=== PATIENT | female | born 1955 | race Caucasian/White ===

== ENCOUNTER 2023-11-16 16:56 | Emergency (ER) | payer MEDICARE ==
[~2023-11-16] VITALS: Ht 157.5 cm; Wt 68.0 kg
[2023-11-16 17:30] LABS: BASO% 0.6 % (0-3); EOS% 1.4 % (0-8); HEMATOCRIT 41.2 % (37.0-47.0); HEMOGLOBIN 13.2 g/dl (12.0-16.0); IMMATURE GRANULOCYTES 0.2 % (0.0-5.0); LYMPH% 32.8 % (15-41); MEAN CELL VOLUME 97.9 fL CALC (80.0-100.0); MEAN CORPUSCULAR HGB 31.4 pG CALC (26.0-32.0); MONO% 7.9 % (2-13); NEUT# 3.55 thou/uL (2.00-7.15); NEUT% 57.1 % (42-76); RED BLOOD COUNT 4.21 mill/uL (4.20-5.60); RED CELL DISTRI WIDTH 12.7 % (11.5-15.5)
[2023-11-16] MEDS ORDERED: LIVALO4 M1 PO (17:33)
[2023-11-16] MEDS ORDERED: ATENOLOL50 MG PO (17:34)
[2023-11-16] MEDS ORDERED: ASPIRINCHW 81MG PO (17:34)
[2023-11-16] MEDS ORDERED: VITAMIN D50000 UNI1 PO (17:36)
[2023-11-16] MEDS ORDERED: SYMBICORT1 AE1 IN (17:37)
[2023-11-16] MEDS ORDERED: MIRALAX17 GM (17:37)
[2023-11-16 17:47] LABS: ALBUMIN 4.4 g/dL (3.2-5.0); ALKALINE PHOSPHATASE 71 u/l (38-126); ANION GAP 12 (6-22 (CALC)); BILIRUBIN, TOTAL 0.5 mg/dL (0.02-1.3); BUN 16 mg/dL (8-23); BUN/CREATININE RATIO 19 (12-20 (CALC)); CARBON DIOXIDE 30 mmol/l (22-30); CHLORIDE 102 mmol/l (95-108); CREATININE 0.9 mg/dL (0.5-1.0); GFR FOR AFR.AMER. > 60 ML/MIN (>=60 (CALC)); GFR OTHER RACES > 60 ML/MIN (>=60 (CALC)); LIPASE 128 u/l (23-300); POTASSIUM 4.5 mmol/l (3.5-5.1); SGOT/AST 41 u/l (9-36); SODIUM 139 mmol/l (137-146); TOTAL PROTEIN 7.5 g/dL (6.3-8.2)
[2023-11-16 18:35] LABS: URINE BILIRUBIN - DIPSTICK Negative (NEGATIVE); URINE BLOOD DIPSTICK Negative (NEGATIVE); URINE GLUCOSE - DIPSTICK Negative (NEGATIVE); URINE KETONE Negative (NEGATIVE); URINE LEUK ESTERASE Negative (NEGATIVE); URINE NITRITE - DIPSTICK Negative (Negative); URINE PROTEIN - DIPSTICK Negative (NEG-TRACE); URINE UROBILINOGEN - DIPSTICK 0.2 E.U./dL (0.2)
[2023-11-16 18:37] LABS: URINE COLOR Yellow
[2023-11-16] MEDS ORDERED: ZOFRAN4 MG/TAB PO (19:00)
[2023-11-16] MEDS ORDERED: NAPROXEN500 MG PO (19:00)
[2023-11-16] MEDS ORDERED: AMOX/K CLAV875 M1 PO (19:00)
[2023-11-16 19:34] VITALS: BP 192/95
== END 2023-11-16 19:40 | disposition home or self-care (01) ==
LOC: ED 16:56
PROVIDERS: Family Medicine
DX: K29.80 Duodenitis without bleeding (principal); I10 Essential (primary) hypertension; J44.9 Chronic obstructive pulmonary disease, unspecified
CPT/HCPCS: Q9967

== ENCOUNTER 2024-04-29 04:28 | Inpatient (IN) | payer MEDICARE ==
[2024-04-29] VITALS (43 sets, daily range): BP systolic 94–169; BP diastolic 57–97
[~2024-04-29] VITALS: Ht 157.5 cm; Wt 87.2 kg
[~2024-04-29 04:28] MED LIST: AMOX/K CLAV875 M1 PO; ASPIRINCHW 81MG PO; ATENOLOL50 MG PO; EQ INFANTS20 MG/0.3 PO; ESCITALOPRAM OX10 MG PO; LIVALO4 M1 PO; LORTAB 5/3255 MG PO; MIRALAX17 GM; NAPROXEN500 MG PO; NORVASC PO; SYMBICORT1 AE1 IN; TORADOL PO; VITAMIN D50000 UNI1 PO; ZOFRAN4 MG/TAB PO
--- NOTE | 2024-04-29 04:40 | NUR ---
PT ARRIVES TO ROOM 6 VIA EMS.
[2024-04-29] MEDS ORDERED: HYDROmorphone HCL 2 MG/AMP IV STA (04:49)
[2024-04-29] MEDS ORDERED: Levofloxacin 750 mg Premix 150 ML IV STA (04:57)
[2024-04-29] MEDS ORDERED: DIATRIZOATE MEGLUMINE & SODIUM 30 ML/BTL BTL PO ONE (05:05)
[2024-04-29] MEDS ORDERED: PROMETHAZINE HCL 25 MG/ML AMP IV ONE (05:05)
[2024-04-29] MEDS ORDERED: SODIUM CHLORIDE 0.9% 1,000 ML BAG IV ONE ×2 (05:05→13:37)
--- NOTE | 2024-04-29 06:19 | NUR ---
PT VERY DROWSY, AWAKES TO PAINFUL STIMULI ONLY. UNABLE TO DRINK CONTRAST DUE TO INABILITY TO STAY AWAKE. DR NOTIFIED.
[2024-04-29] MEDS ORDERED: NALOXONE HCL 0.4 MG/ML 1ML AMP IV ONE (06:20)
--- NOTE | 2024-04-29 07:10 | NUR ---
Report recived from MACY MUNIZ. Blood cultures draw by lab. ABT's started.
[2024-04-29 07:18] LABS: BASO% 0.6 % (0-3); EOS% 0.3 % (0-8); LYMPH% 27.3 % (15-41); MEAN CORPUSCULAR HGB 32.1 pG CALC (26.0-32.0); MEAN CORPUSCULAR HGB CONC 30.5 g/dL CAL (32.0-36.0); MONO% 9.8 % (2-13); NEUT# 2.02 thou/uL (2.00-7.15); RED BLOOD COUNT 4.21 mill/uL (4.20-5.60); RED CELL DISTRI WIDTH 13.2 % (11.5-15.5)
[2024-04-29 07:29] LABS: HEMATOCRIT 44.2 % (37.0-47.0); HEMOGLOBIN 13.5 g/dl (12.0-16.0)
[2024-04-29 07:33] LABS: ALBUMIN 3.6 g/dL (3.2-5.0); CREATININE 1.3 mg/dL (0.5-1.0); MAGNESIUM 1.6 mg/dL (1.6-2.3); POTASSIUM 3.9 mmol/l (3.5-5.1); TOTAL PROTEIN 6.3 g/dL (6.3-8.2)
[2024-04-29] MEDS ORDERED: MORPHINE SULFATE 4 MG/ML VIAL IV ONE (07:50)
[2024-04-29] MEDS ORDERED: ONDANSETRON HCl 4 MG/2 ML SDV IV ONE ×3 (07:50→13:37)
[2024-04-29 08:04] LABS: TSH, 3RD GENERATION 1.18 uIU/mL (0.47 - 4.68)
--- NOTE | 2024-04-29 08:20 | NUR ---
Pt transported to CT via stretcher.
[2024-04-29] MEDS ORDERED: VANCOMYCIN HCL 1 GM in SODIUM CHLORIDE 0.9% 250 ML IV ONE (08:50)
[2024-04-29] MEDS ORDERED: PIPERACILLIN Sodium-Tazobactam 3.375 GM in SODIUM CHLORIDE 0.9% 100 ML IV ONE (09:35)
[2024-04-29 09:37] LABS: URINE BLOOD DIPSTICK Negative (NEGATIVE); URINE COLOR Dark yellow; URINE GLUCOSE - DIPSTICK Negative (NEGATIVE); URINE KETONE Negative (NEGATIVE); URINE LEUK ESTERASE Negative (NEGATIVE); URINE NITRITE - DIPSTICK Negative (Negative); URINE PROTEIN - DIPSTICK 100 mg/dL (NEG-TRACE); URINE UROBILINOGEN - DIPSTICK 0.2 E.U./dL (0.2)
[2024-04-29 09:38] LABS: INTERNATIONAL NORMALIZED RATIO 1.1 RATIO (0.7-1.3)
[2024-04-29 09:39] LABS: URINE MUCUS FEW hpf (NONE-FEW); URINE RBC 0-2 RBC/hpf (0-5); URINE SQUAMOUS EPITHELIAL CELL FEW EPI/hpf (0-FEW); URINE WBC 0-2 WBC/hpf (0-5)
[2024-04-29 09:39] LABS: PROTHROMBIN TIME 10.5 SECONDS (9.0-12.5)
[2024-04-29] MEDS ORDERED: Pantoprazole Sodium 40 MG VIAL (Protonix) IV ONE (09:45)
[2024-04-29 09:53] LABS: D-DIMER 0.6 mg/L (0.19-0.60)
[2024-04-29] MEDS ORDERED: SODIUM CHLORIDE 0.9% 1,000 ML IV PRN ×2 (10:20→15:10)
[2024-04-29] MEDS ORDERED: HYDROmorphone HCL 2 MG/AMP IV PRN (10:25)
[2024-04-29] MEDS ORDERED: SODIUM CHLORIDE 0.9% 500 ML IV ONE (10:25)
[2024-04-29] MEDS ORDERED: Pantoprazole Sodium 40 MG VIAL (Protonix) IV SCH (11:00)
[2024-04-29] MEDS ORDERED: NALOXONE HCL 1 MG/ML SYR ONE (11:47)
--- NOTE | 2024-04-29 12:15 | NUR ---
report received from ALEJANDRINA Palacios RN
--- NOTE | 2024-04-29 12:20 | NUR ---
Report called to ICU bed 2 RN.
--- NOTE | 2024-04-29 12:30 | NUR ---
Nurse to nurse with OR
--- NOTE | 2024-04-29 12:33 | NUR ---
Pt transported to OR via stretcher
[2024-04-29] MEDS ORDERED: LACTATED RINGER'S 1,000 ML IV ONE ×2 (12:35→15:20)
[2024-04-29] MEDS ORDERED: FAMOTIDINE 10MG/ML 2ML SDV IV ONE (12:58)
[2024-04-29] MEDS ORDERED: LIDOcaine HCl 1% (Local Anesth.) 20 ML VIAL ONE (13:00)
[2024-04-29] MEDS ORDERED: SODIUM CHLORIDE 0.9% 0 ML IV ONE (13:31)
[2024-04-29] MEDS ORDERED: KETOROLAC TROMETHAMINE 30 MG/ML SDV IV ONE (13:37)
[2024-04-29] MEDS ORDERED: PROPOFOL 200 MG/20 ML VIAL IV ONE (13:37)
[2024-04-29] MEDS ORDERED: ROCURONIUM BROMIDE 10 MG/ML 5ML VIAL IV ONE (13:37)
[2024-04-29] MEDS ORDERED: SUGAMMADEX SODIUM 200 MG/2 ML SDV IV ONE (13:37)
[2024-04-29] MEDS ORDERED: DEXAMETHASONE SODIUM PHOSPHATE PF 10 MG/ML SDV IV ONE (13:37)
[2024-04-29] MEDS ORDERED: LIDOCAINE HCL 2% 2ML SDV IV ONE (13:37)
[2024-04-29] MEDS ORDERED: PHENYLEPHRINE HCL 10 MG/ML VIAL IV ONE (13:37)
[2024-04-29] MEDS ORDERED: ONDANSETRON HCl 4 MG/2 ML SDV IV PRN (15:10)
[2024-04-29] MEDS ORDERED: HYDROmorphone HCL 2 MG/AMP ONE (15:14)
[2024-04-29] MEDS ORDERED: Fluconazole 200 mg Premix 100 ML IV SCH (15:15)
[2024-04-29] MEDS ORDERED: ALBUTEROL SULFATE 2.5 MG VIAL NEB PRN (15:15)
[2024-04-29] MEDS ORDERED: PIPERACILLIN Sodium-Tazobactam 4.5 GM in SODIUM CHLORIDE 0.9% 100 ML IV SCH (16:00)
--- NOTE | 2024-04-29 16:27 | NUR ---
female pt received from OR via stretcher accompanied by Bhargavi x2; no acute distress noted; pt transferred to bed x4 staff; admission assessment completed at this time; pt alert and oriented; drowsy; c/c of abd pain since lap yvonne; pt admits to pain 05/23; no n/v noted; resp even/shallow; lungs clear; skin color pale; o2 per nc at 3l; hr reg; strong pulses; no edema noted; sr on monitor; bilat scds placed; abd tender with absent bs; ng tube clamped to right nare; chacko too gravity with scant clear yellow urine; urometer placed at this time; TLC flushed and patent to RIJ; #20 to rac with ivf infusing without complication; #20 LH; no redness or edema noted at sites; dressing cdi to abd; johnny drain to right abd with bloody drainage; repositioned; call light within reach; will continue to monitor
[2024-04-29 17:02] LABS: BASO% 1.1 % (0-3); HEMATOCRIT 42.9 % (37.0-47.0); HEMOGLOBIN 13.4 g/dl (12.0-16.0); IMMATURE GRANULOCYTES 0.4 % (0.0-5.0); LYMPH% 20.9 % (15-41); MEAN CELL VOLUME 101.4 fL CALC (80.0-100.0); MEAN CORPUSCULAR HGB 31.7 pG CALC (26.0-32.0); MEAN CORPUSCULAR HGB CONC 31.2 g/dL CAL (32.0-36.0); MONO% 10.1 % (2-13); NEUT# 1.81 thou/uL (2.00-7.15); NEUT% 67.5 % (42-76); RED BLOOD COUNT 4.23 mill/uL (4.20-5.60); RED CELL DISTRI WIDTH 13.4 % (11.5-15.5)
[2024-04-29 17:12] LABS: BILIRUBIN, TOTAL 0.7 mg/dL (0.02-1.3); CREATININE 1.4 mg/dL (0.5-1.0)
[2024-04-29 17:19] LABS: ALBUMIN 2.5 g/dL (3.2-5.0); POTASSIUM 5.1 mmol/l (3.5-5.1)
[2024-04-29] MEDS ORDERED: BENZOCAINE-MENTHOL (MOUTH-THRO 1 LOZ LOZ MT PRN (17:20)
[2024-04-29] MEDS ORDERED: SODIUM CHLORIDE 0.9% 2,000 ML IV ONE (17:22)
[2024-04-29] MEDS ORDERED: STERILE WATER FOR IRRIGATION 1,000 ML BTL IR ONE (17:22)
--- NOTE | 2024-04-29 18:24 | NUR ---
pt resting comfortably in bed; no apparent distress noted; o2 per nc; iv intact and patent; no redness or edema noted at site; chacko to gravity; sr on monitor; call light within reach
--- NOTE | 2024-04-29 19:10 | NUR ---
eyes closed. o2 cont per nc. bowel sounds absent. abd dsg cdi. ngt cont to lis draining dark brown, draining minimally. monitoring manager shows sinus rhythm. ivf infusing well per rt tlc. chacko cath in place. urine clear yellow. urometer conts. bilat scds on. encouraged to tcbd but pt doesn't. fall precaution cont. bed alarm activated.
--- NOTE | 2024-04-29 22:00 | NUR ---
awakens easily. no c/o pain voiced. encouraged to tcdb but pt didn't.
--- NOTE | 2024-04-29 23:30 | NUR ---
awakens easily. no c/o pain voiced. phototypesetting equipment monitor shows sinus rhythm. uop remains minimum.
[2024-04-30] VITALS (23 sets, daily range): BP systolic 112–155; BP diastolic 54–88
--- NOTE | 2024-04-30 02:00 | NUR ---
eyes closed. no apparent distress. nurse monitoring shows sinus rhythm.
--- NOTE | 2024-04-30 03:45 | NUR ---
blood drawn & sent to lab.
[2024-04-30 04:50] LABS: BASO% 0.1 % (0-3); IMMATURE GRANULOCYTES 1.3 % (0.0-5.0); LYMPH% 9.8 % (15-41); MEAN CELL VOLUME 100.3 fL CALC (80.0-100.0); MEAN CORPUSCULAR HGB 31.4 pG CALC (26.0-32.0); MEAN CORPUSCULAR HGB CONC 31.3 g/dL CAL (32.0-36.0); MONO% 6.7 % (2-13); NEUT# 6.46 thou/uL (2.00-7.15); NEUT% 82.1 % (42-76); RED BLOOD COUNT 3.41 mill/uL (4.20-5.60); RED CELL DISTRI WIDTH 13.6 % (11.5-15.5)
[2024-04-30 04:58] LABS: HEMATOCRIT 34.2 % (37.0-47.0); HEMOGLOBIN 10.7 g/dl (12.0-16.0)
[2024-04-30 05:06] LABS: ALBUMIN 2.3 g/dL (3.2-5.0); BILIRUBIN, TOTAL 0.7 mg/dL (0.02-1.3); CREATININE 1.5 mg/dL (0.5-1.0); POTASSIUM 4.6 mmol/l (3.5-5.1); TOTAL PROTEIN 4.9 g/dL (6.3-8.2)
--- NOTE | 2024-04-30 06:00 | NUR ---
awake. no c/o voiced. uop remains minimum.
--- NOTE | 2024-04-30 10:14 | NUR ---
PT SEEN AT REST IN THE BED WITH VISITORS AT BEDSIDE, ALERT AND ORIENTED X 3. PT WITH NG IN PLACE, 4 LPM NC, GUY DRAIN NOTED. PT ENCOURAGED TO BREATHE DEEPLY, FOLLOWS COMMAND. DR HAMILTON HAS ROUNDED ON PT THIS MORNING.
[2024-04-30] MEDS ORDERED: DEXTROSE 5% w/NACL 0.45 1,000 ML IV PRN (10:35)
--- NOTE | 2024-04-30 12:00 | NUR ---
PT WITH VISITORS AT BEDSIDE, COMFORTABLE IN THE BED. DR BOURGEOIS HAS BEEN IN TO SEE PT, QUESTIONS ANSWERED. PT RECEIVED DILAUDID EARLIER, STILL PAINFUL WHEN SHE MOVES.
--- NOTE | 2024-04-30 17:09 | NUR ---
PT HAS BEEN ASSISTED TO DANGLE IN THE BED AND STAND ON HER FEET FOR SEVERAL MINUTES. PT STATES THERE IS PAIN WITH MOVEMENT, BUT NOT OTHERWISE.
--- NOTE | 2024-04-30 18:32 | NUR ---
PT REMAINS AT REST IN THE BED. VISITORS HAVE GONE HOME. PT ENCOURAGED BY FEELING BETTER THIS AFTERNOON.
--- NOTE | 2024-04-30 20:00 | NUR ---
Report recieved from dayshift. Patient is resting in bed, denies any pain at this time. Patient is A&Ox4, on 4L NC. Patient has IV fluids and protonix drip running as ordered. VICTOR M in place to LIS. Garcia in place. All needs addressed. Call light and belongings within reach.
--- NOTE | 2024-04-30 22:00 | NUR ---
Patient is sleeping, does not appear to be in any pain. Oxygem increased to 5L NC due to patient desaturating to 88%. Patient medicated for pain. IV fluids and protonix drip running as ordered. NG tube to ginna LORENZO in place. All needs addressed. Call light and belongings within reach.
[2024-05-01] VITALS (25 sets, daily range): BP systolic 131–194; BP diastolic 64–91
--- NOTE | 2024-05-01 | NUR ---
Patient is sleeping, does not appear to be in any distress. On 5L NC, IV fluids and protonix drip running as ordered. Garcia in place, NG tube to LIS. VS WNL. All needs addressed. Call light and belongings within reach.
--- NOTE | 2024-05-01 02:00 | NUR ---
PATIENT IS RESTING IN BED, DENIES ANY PAIN. ON 5L NC, LYONS IN PLACE, NG TUBE TO LIS. IV FLUIDS AND PROTONIX DRIP RUNNING ORDERED. VS WNL. ALL NEEDS ADDRESSED. CALL LIGHT AND BELONGINGS WITHIN REACH.
--- NOTE | 2024-05-01 04:00 | NUR ---
PATIENT IS RESTING IN BED, DENIES ANY PAIN. ON 5L NC, NG TUBE TO LIS, 300 ML EMPTIED FROM CANNISTER. LYONS IN PLACE. IV FLUIDS AND PROTONIX GTT RUNNING ORDERED. ALL NEEDS ADDRESSED. CALL LIGHT AND BELONGINGS WITHIN REACH.
[2024-05-01 04:49] LABS: HEMATOCRIT 28.7 % (37.0-47.0); HEMOGLOBIN 9.1 g/dl (12.0-16.0); MEAN CELL VOLUME 100.3 fL CALC (80.0-100.0); MEAN CORPUSCULAR HGB 31.8 pG CALC (26.0-32.0); MEAN CORPUSCULAR HGB CONC 31.7 g/dL CAL (32.0-36.0); RED BLOOD COUNT 2.86 mill/uL (4.20-5.60)
[2024-05-01 05:05] LABS: ALBUMIN 2.2 g/dL (3.2-5.0); CREATININE 1.1 mg/dL (0.5-1.0); MAGNESIUM 1.7 mg/dL (1.6-2.3); POTASSIUM 3.8 mmol/l (3.5-5.1); TOTAL PROTEIN 4.6 g/dL (6.3-8.2)
[2024-05-01 05:07] LABS: BILIRUBIN, TOTAL 0.4 mg/dL (0.02-1.3)
--- NOTE | 2024-05-01 08:10 | NUR ---
PT SEEN AT REST IN THE BED, NO DISTRESS. NG IN PLACE. GUY IN PLACE. LUNGS CLEAR, 4 LPM. NPO. PT AWARE OF PLAN TO BE OOB TODAY.
[2024-05-01 10:05] LABS: HEMATOCRIT 28.2 % (37.0-47.0); HEMOGLOBIN 8.9 g/dl (12.0-16.0)
--- NOTE | 2024-05-01 11:30 | NUR ---
PT ASSISTED OOB INTO CHAIR, TOLERATED WELL. DR BOURGEOIS HAS SEEN PT THIS MORNING WELL DR REYNA. NO DISTRESS, NG REMAINS IN PLACE. GUY IN PLACE.
--- NOTE | 2024-05-01 14:14 | NUR ---
PT COMFORTABLE AT THIS TIME, AT REST IN THE BED WITH FIANCE AT BEDSIDE.
--- NOTE | 2024-05-01 18:16 | NUR ---
PT CONTINUES WITH VISITORS AT BEDSIDE. PT SLIGHTLY UNCOMFORTABLE PAINWISE, NOT NEEDING MEDICATION. DRESSING REMAINS CDI. GUY DRAIN EMPTIED TWICE TODAY, NOT MUCH IN THEM.
--- NOTE | 2024-05-01 20:00 | NUR ---
Report received from dayshift nurse. Patient is resting in bed, denies any pain. On 4L NC, NG tube to LIS, chacko in place, R GUY drain in place. IV fluids and protonix gtt running as ordered. Repositioned and encouraged use of IS. All needs addressed. Call light and belongings within reach.
--- NOTE | 2024-05-01 22:00 | NUR ---
Patient is resting in bed, pain releived by pain meds given earlier. On 4L NC, chacko in place, NG tube to LIS, GUY drain in place. Repositioned. IV fluids and protonx gtt running as ordered. All needs addressed. Call light and belongings within reach.
[2024-05-02] VITALS (25 sets, daily range): BP systolic 139–186; BP diastolic 63–89
--- NOTE | 2024-05-02 | NUR ---
Patient is sleeping, does not appear to be in any pain. On 4L NC, NG in place to LIS, R GUY drain in place, chacko in place. IV fluids and protonix gtt running as ordered. All needs addressed. Call light and belongings within reach.
--- NOTE | 2024-05-02 02:00 | NUR ---
Patient is sleeping, does not appear to be in any pain. On 4L NC, NG in plac to BJ R GUY drain in place, chacko in place. IV fluids and protonix gtt running as ordered. All needs addressed. Call light and belongings within reach.
--- NOTE | 2024-05-02 04:00 | NUR ---
Patient is resting in bed, c/o pain. Medicated with PRN meds. On 4L NC, NG in place to LIS, R GUY drain in place, chacko in place. IV fluids and protonix gtt running as ordered. All needs addressed. Call light and belongings within reach.
[2024-05-02] MEDS ORDERED: hydrALAZINE HCL 20 MG/ML VIAL(1 ML) IV PRN (05:30)
--- NOTE | 2024-05-02 06:00 | NUR ---
Patient is resting in bed, denies any pain. BP elevated, will given PRN meds. On 4L NC, chacko in place, R GUY drain in place, NG tube to LIS. Repositioned. All needs addressed. Call light and belongings within reach.
[2024-05-02 06:44] LABS: BASO% 0.1 % (0-3); EOS% 0.7 % (0-8); HEMATOCRIT 27.5 % (37.0-47.0); HEMOGLOBIN 8.6 g/dl (12.0-16.0); IMMATURE GRANULOCYTES 0.3 % (0.0-5.0); LYMPH% 17.1 % (15-41); MEAN CELL VOLUME 99.3 fL CALC (80.0-100.0); MEAN CORPUSCULAR HGB CONC 31.3 g/dL CAL (32.0-36.0); MONO% 6.9 % (2-13); NEUT# 7.42 thou/uL (2.00-7.15); NEUT% 74.9 % (42-76); RED BLOOD COUNT 2.77 mill/uL (4.20-5.60); RED CELL DISTRI WIDTH 13.9 % (11.5-15.5)
[2024-05-02 07:52] LABS: ALBUMIN 2.3 g/dL (3.2-5.0); BILIRUBIN, TOTAL 0.5 mg/dL (0.02-1.3); CREATININE 0.9 mg/dL (0.5-1.0); MAGNESIUM 1.6 mg/dL (1.6-2.3); POTASSIUM 3.3 mmol/l (3.5-5.1); TOTAL PROTEIN 4.6 g/dL (6.3-8.2)
--- NOTE | 2024-05-02 08:00 | NUR ---
PT AT REST IN THE BED IN NO ACUTE DISTRESS. ABDOMINAL DRESSING CHANGED, WELL TOLERATED BY PT.
[2024-05-02] MEDS ORDERED: POTASSIUM CHLORIDE 20MEQ 100 ML IV SCH (09:00)
[2024-05-02] MEDS ORDERED: MAGNESIUM SULFATE HEPTAHYDRATE 50 ML IV SCH (09:00)
[2024-05-02] MEDS ORDERED: DIATRIZOATE MEGLUMINE & SODIUM 30 ML/BTL BTL PO SCH (09:30)
--- NOTE | 2024-05-02 12:00 | NUR ---
PT TO CT AND BACK, UNCOMFORTABLE AFTER BEING MOVED AROUND. NG REMAINS IN PLACE, LYONS IN PLACE.
--- NOTE | 2024-05-02 16:08 | NUR ---
PT SEEN BY DR BOURGEOIS, PLEASED WITH HER PROGRESS. PHYSICAL THERAPY IN ROOM AT THIS TIME TO WORK WITH PT. NO COMPLAINT OF PAIN. VISITORS HAVE GONE HOME.
--- NOTE | 2024-05-02 19:10 | NUR ---
awake. nad. o2 cont per nc. air sampling and monitoring shows sinus rhythm. bowel sounds hypoctive. abd dsg cdi. amrita in place draining pink liquid. ivf infusing per rij tlc. pure wick cath in place. urine clear yellow. sips po fluids taken. encouraged to tcbd & use incentive spirometry. pt complied. fall precautions cont.
[2024-05-02] MEDS ORDERED: ACETAMINOPHEN 325 MG/TAB PO PRN (19:20)
[2024-05-02] MEDS ORDERED: Pantoprazole Sodium 40 MG VIAL (Protonix) IV SCH (21:00)
--- NOTE | 2024-05-02 22:00 | NUR ---
eyes closed. no distress. monitoring tech shows sinus rhythm.
[2024-05-03] VITALS (24 sets, daily range): BP systolic 123–163; BP diastolic 63–81
--- NOTE | 2024-05-03 00:05 | NUR ---
awake. pt using is & flutter valve. pure wick cont. urine clear yellow.
--- NOTE | 2024-05-03 02:00 | NUR ---
eyes closed. no apparent distress. air sampling and monitoring shows sinus rhythm..
--- NOTE | 2024-05-03 03:15 | NUR ---
blood drawn & sent to lab.
[2024-05-03 03:51] LABS: BASO% 0.1 % (0-3); EOS% 0.8 % (0-8); HEMATOCRIT 29.5 % (37.0-47.0); HEMOGLOBIN 9.4 g/dl (12.0-16.0); IMMATURE GRANULOCYTES 0.5 % (0.0-5.0); LYMPH% 23.5 % (15-41); MEAN CELL VOLUME 97.4 fL CALC (80.0-100.0); MEAN CORPUSCULAR HGB CONC 31.9 g/dL CAL (32.0-36.0); MONO% 9.5 % (2-13); NEUT# 6.08 thou/uL (2.00-7.15); NEUT% 65.6 % (42-76); RED BLOOD COUNT 3.03 mill/uL (4.20-5.60); RED CELL DISTRI WIDTH 13.9 % (11.5-15.5)
[2024-05-03 03:52] LABS: ALBUMIN 2.3 g/dL (3.2-5.0); BILIRUBIN, TOTAL 0.7 mg/dL (0.02-1.3); CREATININE 0.7 mg/dL (0.5-1.0); TOTAL PROTEIN 4.8 g/dL (6.3-8.2)
[2024-05-03 07:19] LABS: POTASSIUM 2.8 mmol/l (3.5-5.1)
--- NOTE | 2024-05-03 07:30 | NUR ---
REPORT RECEIVED FROM NIGHT RN. PT LYING IN BED. PT IS A/O. LUNGS CLEAR/DIMINISHED UPPER, COARSE LOWER. PT IS ON HIGH FLOW CANNULA. NSR ON MONITOR. BOWEL SOUNDS HYPOACTIVE. ABDOMINAL DRESSING CHANGED; MINIMAL DRAINIAGE. GUY DRAIN EMPTIED, PINK IN COLOR. PULSES STRONG ALL EXTREMETIES. SKIN W/D. TRACE EDEMA BILATERAL ANKLES/FEET. SCD'S IN PLACE. PT REPORTS PAIN 3/10. AFEBRILE. AFTER DRESSING CHANGE PT ASSISTED TO BEDSIDE COMMODE TO VOID, AND THEN TO CHAIR FOR BREAKFAST. VSS. CALL LIGHT IN REACH.
--- NOTE | 2024-05-03 08:45 | NUR ---
DR. REYNA AT BEDSIDE TO ASSESS PT. PT'S SPOUSE AT BEDSIDE.
[2024-05-03] MEDS ORDERED: POTASSIUM CHLORIDE 20MEQ 100 ML IV SCH ×2 (09:00→13:00)
--- NOTE | 2024-05-03 09:10 | NUR ---
PT ASSISTED TO BEDSIDE COMMODE AND HAD FIRST BM SINCE SURGERY. PT BACK TO SIT IN CHAIR. SPOUSE AT BEDSIDE.
--- NOTE | 2024-05-03 09:28 | NUR ---
PT ASSISTED TO BEDSIDE COMMODE TO HAVE ANOTHER BM.
[2024-05-03] MEDS ORDERED: ATENOLOL 50 MG/TAB PO SCH (10:00)
--- NOTE | 2024-05-03 11:03 | NUR ---
PT SITTING IN CHAIR. REPORTING WORSE PAIN IN ABDOMEN AND REQUESTING PAIN MEDICATION. PRN PAIN MEDS GIVEN PER MAR. PT REQUESTING TO GET BACK INTO BED TO TAKE A NAP. PT AMBULATED TO BED X1 ASSIST. SPOUSE REMAINS AT BEDSIDE. CALL LIGHT IN REACH. VSS. PT DENIES ANY FURTHER NEEDS AT THIS TIME.
--- NOTE | 2024-05-03 11:19 | NUR ---
DR. BOURGEOIS AT BEDSIDE TO ASSESS PT.
[2024-05-03] MEDS ORDERED: FUROSEMIDE 40 MG/4 ML SDV IV SCH (13:00)
--- NOTE | 2024-05-03 13:00 | NUR ---
PT ASLEEP IN BED. VSS. TITRATING OXYGEN DOWN TOLERATED. PT'S SPOUSE AT BEDSIDE.
--- NOTE | 2024-05-03 14:00 | NUR ---
PT BACK UP TO SIT IN CHAIR. DOING WELL ON 6L NC AT THIS TIME. DENIES ANY NEEDS OR PAIN.
--- NOTE | 2024-05-03 14:39 | NUR ---
CHEST PT PERFORMED, PT TOLERATED WELL. PT REMAINS SITTING IN CHAIR. SPOUSE AND VISITORS AT BEDSIDE. CALL LIGHT IN REACH. VSS.
--- NOTE | 2024-05-03 15:47 | NUR ---
RT AT BEDSIDE TO ASSIST PT WITH BREATHING TECHNIQUES AND TO DO CHEST PT. VISITORS AND SPOUSE REMAIN AT BEDSIDE. PT DENIES ANY NEEDS. CALL LIGHT IN REACH. VSS.
--- NOTE | 2024-05-03 17:45 | NUR ---
PT ASSISTED TO BEDSIDE COMMODE TO VOID. PT THEN ABCK IN BED TO REST. CALL LIGHT IN REACH. VSS. ON 4LNC.
--- NOTE | 2024-05-03 19:30 | NUR ---
awake. assisted to bsc for bm. had small liquid brown stool. assisted back to bed. o2 cont per nc. rn cardiac rehab shows sinus rhythm. abd dsg cdi. amrita in place draining pink. ivf infusing per rij tlc. ice chips given per request. fall precautions cont.
--- NOTE | 2024-05-03 21:00 | NUR ---
awakens easily. assisted to bsc then to bed. karen well.
[2024-05-04] VITALS (18 sets, daily range): BP systolic 122–173; BP diastolic 60–78
--- NOTE | 2024-05-04 00:20 | NUR ---
assisted to bsc then back to bed. denies distress. o2 cont.
--- NOTE | 2024-05-04 02:00 | NUR ---
resting quietly. resps even & unlabored. no apparent distress.
--- NOTE | 2024-05-04 03:30 | NUR ---
blood drawn & sent to lab
--- NOTE | 2024-05-04 06:00 | NUR ---
groundwater monitoring technician shows sinus rhythm.
[2024-05-04 06:12] LABS: BASO% 0.4 % (0-3); EOS% 1.4 % (0-8); HEMATOCRIT 28.8 % (37.0-47.0); HEMOGLOBIN 9.4 g/dl (12.0-16.0); IMMATURE GRANULOCYTES 1.3 % (0.0-5.0); LYMPH% 27.1 % (15-41); MEAN CELL VOLUME 98.3 fL CALC (80.0-100.0); MEAN CORPUSCULAR HGB 32.1 pG CALC (26.0-32.0); MEAN CORPUSCULAR HGB CONC 32.6 g/dL CAL (32.0-36.0); MONO% 9.2 % (2-13); NEUT# 5.86 thou/uL (2.00-7.15); NEUT% 60.6 % (42-76); RED BLOOD COUNT 2.93 mill/uL (4.20-5.60)
[2024-05-04 06:50] LABS: CREATININE 0.8 mg/dL (0.5-1.0); POTASSIUM 3.6 mmol/l (3.5-5.1)
--- NOTE | 2024-05-04 07:08 | NUR ---
pt awake in bed; no apparent distress noted; assessment completed at this time; pt alert and oriented; pain 01/21; no n/v noted; resp even and unnlabored; IS and flutter valve at bedside; lung clear; skin color; o2 per nc at 4L; health and safety tech dry cough noted; abd soft/ tender with bs present; pt admits to bm; voiding without complication; bsc; RIJ patent with ivf infusing without complication; abd drsg cdi; GUY to right abd; plan of care/meds explained; call light within reach;
--- NOTE | 2024-05-04 08:03 | NUR ---
awake sitting at the side of the bed eating breakfast; sr on monitor; iv intact and patent; call light within reach; will continue to monitor
--- NOTE | 2024-05-04 08:20 | NUR ---
pt ambulatory with this property underwriter; able to ambulate to room/door enterance with slow steady gait; tolerated well; returned to recliner; set up for oral care;
--- NOTE | 2024-05-04 08:45 | NUR ---
Dr Mendoza present at bedside to assess pt and discuss plan of care
[2024-05-04] MEDS ORDERED: amLODIPine BESYLATE 5 MG/TAB PO SCH (09:00)
[2024-05-04] MEDS ORDERED: ESCITALOPRAM 10 MG/TAB PO SCH (09:00)
--- NOTE | 2024-05-04 09:10 | NUR ---
Dr Carrillo present at bedside to assess pt and discuss plan of care
--- NOTE | 2024-05-04 10:06 | NUR ---
awake in recliner; sr on monitor; family at bedside; call light within reach; will continue to monitor
[2024-05-04] MEDS ORDERED: AMOXICILLIN & POT CLAVULANATE 875 MG/TAB PO SCH (10:30)
[2024-05-04] MEDS ORDERED: FUROSEMIDE 40 MG/4 ML SDV IV SCH (10:30)
--- NOTE | 2024-05-04 11:04 | NUR ---
asssit to bed; dressing changed to abd incision; kamaljit intact; scant drainage noted to dressing at umbilical area; sterile 2x2 packed to umbilical opening as per Dr Carrillo request; covered with 4x4, drainage sponge and silk tape; pt tolerated well; assist back to recliner; will continue to monitor
--- NOTE | 2024-05-04 12:02 | NUR ---
awake in recliner; offers complaints of pain, declined pain meds; iv saline locked; sr on monitor; o2 per nc; call light within reach; will continue to monitor
--- NOTE | 2024-05-04 14:10 | NUR ---
resting in bed with eyes closed; no apparent distress noted s/o at bedside; sr on monitor; call light within reach; will continue to monitor
--- NOTE | 2024-05-04 15:42 | NUR ---
report provided to DIVINA Herrera
--- NOTE | 2024-05-04 16:15 | NUR ---
awake in bed; no apparent distress noted; s/o at bedside; pt offers no complaints; o2 per nc; sr on monitor; call light within reac; med surg transfer 278 explained;
--- NOTE | 2024-05-04 16:38 | NUR ---
pt transferred to [facility] 278 via wc accompanied by program writer and sign other; settled in bed; call light within reach
--- NOTE | 2024-05-04 16:40 | NUR ---
PATIENT ARRIVED FROM ICU TO [facility]
--- NOTE | 2024-05-04 20:00 | NUR ---
RECEIVED REPORT FROM DAYSHIFT NURSE. PT NOTED SITTING FOWLERS IN BED, PILLOW OVER ABD, WATCHING TV AT THIS TIME. PT ON 2L O2 NC. PT IS A/OX4, C/O PAIN 2 OUT OF 10 IN ABD STATES NOT WANTING ANY PAIN MEDICATION AT THIS TIME. PT HAS MIDLINE ABD INCISION COVERED WITH DSG. DSG IS CDI, GUY DRAIN NOTED TO RUQ WITH RED/ORANGE OUTPUT. EDCUATED PT ON PLAN OF CARE AND MED SCHEDULE FOR TONIGHT. CALL LIGHT WITHIN REACH AND SAFETY PRECAUTIONS IN PLACE.
--- NOTE | 2024-05-04 23:23 | NUR ---
PT RECEIVED MEDICATION PER EMAR FOR PAIN AND NAUSEA, TOLERATED WELL. PT LAYING IN BED SEMI FOWELRS. RESTING COMFORTABLY. PT C/O BACK ITCHING, BACK ASSESSED AND APPEARS RED AND DRY. LOTION APPLIED FOR COMFORT AND ENCOURAGED PT TO SLEEP ON SIDE. CALL LIGHT WITHIN REACH AND SAFETY PRECAUTIONS IN PLACE.
[2024-05-05 04:06] VITALS: BP 145/67
--- NOTE | 2024-05-05 07:15 | NUR ---
REPORT RECEIVED FROM DIVINA ALVAREZ
[2024-05-05 07:38] VITALS: BP 152/70
[2024-05-05 07:44] VITALS: BP 152/70
[2024-05-05 08:30] LABS: BASO% 0.3 % (0-3); EOS% 1.9 % (0-8); HEMATOCRIT 27.7 % (37.0-47.0); HEMOGLOBIN 8.9 g/dl (12.0-16.0); IMMATURE GRANULOCYTES 1.5 % (0.0-5.0); LYMPH% 20.2 % (15-41); MEAN CELL VOLUME 97.5 fL CALC (80.0-100.0); MEAN CORPUSCULAR HGB 31.3 pG CALC (26.0-32.0); MEAN CORPUSCULAR HGB CONC 32.1 g/dL CAL (32.0-36.0); MONO% 9.5 % (2-13); NEUT# 4.47 thou/uL (2.00-7.15); NEUT% 66.6 % (42-76); RED BLOOD COUNT 2.84 mill/uL (4.20-5.60); RED CELL DISTRI WIDTH 13.7 % (11.5-15.5)
[2024-05-05 09:00] LABS: ALBUMIN 2.4 g/dL (3.2-5.0); BILIRUBIN, TOTAL 0.6 mg/dL (0.02-1.3); CREATININE 0.7 mg/dL (0.5-1.0); MAGNESIUM 1.5 mg/dL (1.6-2.3); TOTAL PROTEIN 4.8 g/dL (6.3-8.2)
[2024-05-05 09:33] VITALS: BP 152/70
--- NOTE | 2024-05-05 09:35 | NUR ---
PT RESTING IN SEMI FOWLERS POSITION WITH SIGNIFICANT OTHER AT BEDSIDE,A&O X3;POD #6 REPAIR OF PER ULCER;ASSESSMENT COMPLETED;RESPIRATIONS SHALLOW ON O2 @ 4L VIA NC,CLEAR LUNG SOUNDS;I.S. AT BEDSIDE AND PT EDUCATED ON USE;ABDOMEN DISTENDED/SOFT ON PALPATION AND ACTIVE IN ALL 4 QUADRANTS;MIDLINE INCISION NOTED WITH [address], DRESSING CHANGE PROVIDED PER ORDER;GUY DRAIN NOTED TO RT UPPER QUAD- SMALL SEROUS DRAINAGE NOTED;STRONG PEDAL PULSES;RIJ TL FLUSHED AND PATENT WITH GOOD BLOOD RETURN NOTED;PT DENIES NEEDS FOR PAIN MEDICATION AT THIS TIME,EDUCATED ON PAIN MEDICATION SCHEDULED;PT ENCOURAGED TO CALL FOR ASSISTANCE IF NEEDED;FALL PRECAUTIONS IN PLACE WITH BED IN THE LOWEST POSITION AND CALL LIGHT IN REACH;FREQUENT ROUNDS MADE.
[2024-05-05] MEDS ORDERED: LORTAB 5/3255 MG PO (10:46)
[2024-05-05] MEDS ORDERED: PROTONIX40 M2 PO (10:47)
[2024-05-05] MEDS ORDERED: AMOXICILLIN500 MG PO (10:47)
[2024-05-05] MEDS ORDERED: CLARITHROMYCIN500 MG PO (10:48)
--- NOTE | 2024-05-05 11:25 | NUR ---
PT RESTING IN SEMI FOWLERS POSITION WITH SIGNIFICANT OTHER AT BEDSIDE;RESPIRATIONS SHALLOW ON O2 @ 4L VIA NC-TITRATED TO 2L AT THIS TIME;PT REPORTS ABDOMINAL PAIN AND IS MEDICATED WITH PRN DILAUDID 1MG SLOW IVP AND ZOFRAN 4MG IVP PER REQUEST;PT EDUCATED ON PLANS FOR D/C HOME AND VERBALIZES UNDERSTANDING;DENIES ANY ADDITIONAL NEEDS;ENCOURAGED TO CALL FOR ASSISTANCE IF NEEDED;CALL LIGHT IN REACH;FREQUENT ROUNDS MADE.
[2024-05-05] MEDS ORDERED: ONDANSETRON4 MG PO (11:52)
--- NOTE | 2024-05-05 12:40 | NUR ---
PT RESTING IN SEMI FOWLERS POSITION;OXYGEN SAT 94% ON 2L VIA NC, TITRATED TO 1L AT THIS TIME;GUY EMPTIED OF 20CC OF SEROUS FLUID.GUY DRAIN REMOVED PER ORDER AND PT TOLERATED WELL.DRESSING APPLIED;PT DENIES ANY ADDITIONAL NEEDS;CALL LIGHT IN REACH;FREQUENT ROUNDS MADE.
--- NOTE | 2024-05-05 13:06 | NUR ---
RESPIRATIONS REMAIN EVEN AND UNLABORED ON O2 @ 1L VIA NC- 92%. OXYGEN REMOVED AT THIS TIME. FREQUENT ROUNDS MADE
--- NOTE | 2024-05-05 13:15 | NUR ---
RIJ TL REMOVED BY FLAVIO GUZMAN WITH CATHETER INTACT. PRESSURE DRESSING APPLIED.
--- NOTE | 2024-05-05 13:40 | NUR ---
PT AMBULATED TO RESTROOM, O2 SATS DROPPED TO 85% ON RA. O2 PLACED BACK ON PATIENT, 3L REQUIRED TO RECOOPERATE. NOTIFIED. PT TO NEED HOME OXYGEN PRIOR TO D/C. CASE MANAGEMENT NOTIFIED.FREQUENT ROUNDS MADE.
--- NOTE | 2024-05-05 14:25 | NUR ---
ALL DISCHARGE INSTRUCTIONS PROVIDED AT THIS TIME. MULTIPLE RX SENT TO PHARMACY FOR PHARMACY ANALYST-PT EDUCATED ON ALL MEDICATION. PT INSTRUCTED NOT TO HEAVY LIFT, THAT SHE CAN SHOWER AND THAT OFFICE WITH BE CONTACTING HER FOR AN APPOINTMENT/ BUSINESS CARD PROVIDED;PT EDUCATED ON PORTABLE OXYGEN TANK USE AT 3L AND BUSINESS CARD ALSO PROVIDED FOR MARJORIE-ENCOURAGED TO CALL ONCE SHE GETS HOME. PT AND FIANCE DENIES ANY ADDITIONAL QUESTIONS OR NEEDS;WC TO BE PROVIDED FOR D/C HOME.FIANCE TO TRAMSPORT PT HOME.FREQUENT ROUNDS MADE.
--- NOTE | 2024-05-05 14:28 | NUR ---
Discharge instructions given. Patient verbalizes understanding of same. Discharged in stable condition via Wheelchair to Home with significant other. All belongings sent with pt. PT TRANSPORTED TO [facility] IN STABLE CONDITION VIA ACCOMPANIED BY STEFANO KRISHNAN WITH PORTABLE HOME OXYGEN TANK.ALL PERSONAL BELONGINGS LEFT WITH PT. SIGNIFICANT OTHER TO TRANSPORT PT HOME.
== END 2024-05-05 14:27 | disposition home health service (06) | DRG 853 ==
LOC: ED 04:28 → ED-I 09:19 → ED 10:20 → ICU 10:21 → MS2 05-04 16:38
PROVIDERS: Family Medicine; Student in an Organized Health Care Education/Training Program; ADMIT Internal Medicine; ATTEND Surgery
PROC: 0DU907Z Supplement Duodenum with Autologous Tissue Substitute, Open Approach (ICD-10-PCS; principal; 2024-04-29)
PROC: 0W9G4ZZ Drainage of Peritoneal Cavity, Percutaneous Endoscopic Approach (ICD-10-PCS; 2024-04-29)
PROC: 02HV33Z Insertion of Infusion Device into Superior Vena Cava, Percutaneous Approach (ICD-10-PCS; 2024-04-29)
DX: A41.9 Sepsis, unspecified organism (principal); J18.9 Pneumonia, unspecified organism; J96.01 Acute respiratory failure with hypoxia; K26.5 Chronic or unspecified duodenal ulcer with perforation; K65.0 Generalized (acute) peritonitis; E87.20 Acidosis, unspecified; E87.6 Hypokalemia; D64.89 Other specified anemias; J44.0 Chronic obstructive pulmonary disease with (acute) lower respiratory infection; R65.20 Severe sepsis without septic shock; I95.9 Hypotension, unspecified; I10 Essential (primary) hypertension; Z90.49 Acquired absence of other specified parts of digestive tract; Z87.891 Personal history of nicotine dependence
CPT/HCPCS: J1100; J3475; Q9967; S0164

== ENCOUNTER 2024-08-09 06:28 | Day surgery (SDC) | payer MEDICARE ==
[~2024-08-09] VITALS: Ht 157.5 cm; Wt 83.9 kg
[~2024-08-09 06:28] MED LIST changes: +AMLODIPINE BESYL5 MG PO; +AMOXICILLIN500 MG PO; +CARISOPRODOL250 MG PO; +CLARITHROMYCIN500 MG PO; +D32000 UNI1 PO; +KLOR-CON M2020 MEQ PO; +LASIX 20 MG TAB20 MG PO; +ONDANSETRON4 MG PO; +PROBIOTI3 PO; +PROTONIX40 M2 PO; +SLOW-MAG PO
[2024-08-09] MEDS ORDERED: LACTATED RINGER'S 1,000 ML IV ONE (06:55)
[2024-08-09] MEDS ORDERED: FAMOTIDINE 10MG/ML 2ML SDV IV ONE (06:55)
[2024-08-09 09:46] VITALS: BP 164/88
[2024-08-09] MEDS ORDERED: LIDOCAINE HCL 2% 2ML SDV IV ONE (15:45)
[2024-08-09] MEDS ORDERED: PROPOFOL 200 MG/20 ML VIAL IV ONE (15:45)
== END 2024-08-09 09:51 | disposition home or self-care (01) ==
LOC: ENDO 06:28 → ORM 10:15 → ENDO 10:15
PROVIDERS: ATTEND Surgery
PROC: 0DB98ZX Excision of Duodenum, Via Natural or Artificial Opening Endoscopic, Diagnostic (ICD-10-PCS; principal; 2024-08-09)
PROC: 0DB68ZX Excision of Stomach, Via Natural or Artificial Opening Endoscopic, Diagnostic (ICD-10-PCS; 2024-08-09)
DX: K29.80 Duodenitis without bleeding (principal); K31.9 Disease of stomach and duodenum, unspecified; K44.9 Diaphragmatic hernia without obstruction or gangrene; I10 Essential (primary) hypertension; J44.9 Chronic obstructive pulmonary disease, unspecified; Z87.891 Personal history of nicotine dependence; Z87.11 Personal history of peptic ulcer disease